=== PATIENT | female | born 1970 | race Caucasian/White ===

== ENCOUNTER 2017-04-18 17:33 | Emergency (ER) | payer MEDICAID, OTHER ==
[2017-04-18 19:00] VITALS: BP 119/95
--- NOTE | 2017-04-18 19:17 | EDM.PDOC ---
ED HPI GENERAL MEDICAL PROBLEM - General Chief Complaint: Respiratory Problem Stated Complaint: cough Time Seen by Provider: 04/18/17 19:12 Source of Information: Reports: Patient History Limitations: Reports: No Limitations - History of Present Illness INITIAL COMMENTS - FREE TEXT/NARRATIVE: Pt with cough x 1 week. Using OTC meds and Albuterol as needed with no improvement. Also with fever/chills, body ache. Does smoke. Known history of COPD. Cough is now nonproductive. Appetite poor. Very fatigued. Onset: Gradual Location: Reports: Chest Quality: Reports: Ache Severity: Moderate Improves with: Reports: None Worsens with: Reports: Breathing Associated Symptoms: Reports: Cough, Headaches, Loss of Appetite, Shortness of Breath right side chest Pain Score (Numeric/FACES): 9 - Related Data Allergies Allergy/AdvReac Type Severity Reaction Status Date / Time No Known Allergies Allergy Verified 04/18/17 19:00 Home Meds: Home Meds traZODone 150 mg PO BEDTIME 11/26/13 [History] Loratadine [Claritin] 10 mg PO DAILY 04/18/17 [History] Past Medical History HEENT History: Reports: Cataract Cardiovascular History: Reports: Blood Clots/VTE/DVT, Heart Murmur Respiratory History: Reports: COPD Genitourinary History: Reports: Renal Calculus [employer] History: Reports: Musculoskeletal History: Reports: Osteoporosis Neurological History: Reports: Migraines Psychiatric History: Reports: Depression Hematologic History: Reports: Blood Transfusion(s) - Infectious Disease History Infectious Disease History: Reports: Chicken Pox - Past Surgical History HEENT Surgical History: Reports: Cataract Surgery, Eye Surgery Respiratory Surgical History: Reports: None Female Surgical History: Reports: Hysterectomy, Kidney stone extraction, Salpingo-Oophorectomy Musculoskeletal Surgical History: Reports: Arthroscopic Knee Social & Family History - Tobacco Use Smoking Status *Q: Current Every Day Smoker Years of Tobacco use: 34 Packs/Tins Daily: 0.5 Used Tobacco, but Quit: No Second Hand Smoke Exposure: Yes - Caffeine Use Caffeine Use: Reports: Coffee - Alcohol Use Days Per Week of Alcohol Use: 1 Number of Drinks Per Day: 2 Total Drinks Per Week: 2 - Recreational Drug Use Recreational Drug Use: No ED ROS GENERAL - Review of Systems Review Of Systems: See Below Constitutional: Reports: Fever, Chills, Malaise, Decreased Appetite HEENT: Reports: No Symptoms Respiratory: Reports: Shortness of Breath, Wheezing, Cough Cardiovascular: Reports: No Symptoms GI/Abdominal: Reports: No Symptoms Musculoskeletal: Reports: No Symptoms Skin: Reports: No Symptoms Neurological: Reports: No Symptoms Psychiatric: Reports: No Symptoms ED EXAM, GENERAL - Physical Exam Exam: See Below Exam Limited By: No Limitations General Appearance: Alert, WD/WN, Mild Distress Ears: Normal External Exam, Normal Canal, Hearing Grossly Normal, Normal TMs Ear Exam: Bilateral Ear: Auricle Normal, Canal Normal, TM normal Nose: Normal Inspection, Normal Mucosa, No Blood Throat/Mouth: Normal Inspection, Normal Lips, Normal Teeth, Normal Gums, Normal Oropharynx, Normal Voice, No Airway Compromise Head: Atraumatic, Normocephalic Neck: Normal Inspection, Supple, Non-Tender, Full Range of Motion Respiratory/Chest: Decreased Breath Sounds Cardiovascular: Normal Peripheral Pulses, Regular Rate, Rhythm, No Edema, No Gallop, No JVD, No Murmur, No Rub Extremities: Normal Inspection, Normal Range of Motion, Non-Tender, Normal Capillary Refill, No Pedal Edema Psychiatric: Normal Affect, Normal Mood Skin Exam: Warm, Dry, Intact, Normal Color, No Rash Course - Vital Signs Last Recorded V/S: Last Vital Signs Temp 98.1 F 04/18/17 18:57 Pulse 62 04/18/17 18:57 Resp 22 H 04/18/17 18:57 BP 119/95 H 04/18/17 18:57 Pulse Ox 92 L 04/18/17 18:57 - Orders/Labs/Meds Orders: Active Orders 24 hr Category Date Time Status RT Aerosol Therapy [RC] ASDIRECTED Care 04/18/17 19:18 Active Chest 2V [CR] Stat Exams 04/18/17 19:18 Taken Labs: Laboratory Tests 04/18/17 Range/Units 19:29 WBC 7.7 (4.5-11.0) K/uL RBC 4.29 (3.30-5.50) M/uL Hgb 13.8 (12.0-15.0) g/dL Hct 40.8 (36.0-48.0) % MCV 95 (80-98) fL MCH 32 H (27-31) pg MCHC 34 (32-36) % Plt Count 251 (150-400) K/uL Neut % (Auto) 65 (36-66) % Lymph % (Auto) 24 (24-44) % Edwards % (Auto) 10 H (2-6) % Eos % (Auto) 1 L (2-4) % Baso % (Auto) 0 (0-1) % Meds: Medications Discontinued Medications Generic Name Dose Route Start Last Admin Trade Name Eagle PRN Reason Stop Dose Admin Albuterol 0.63 mg 04/18/17 19:18 04/18/17 19:35 Proventil Neb Soln NEB 04/18/17 19:19 0.63 mg ONETIME ONE Administration Methylprednisolone Sodium Succinate 125 mg 04/18/17 19:18 04/18/17 19:33 Solu-Medrol IM 04/18/17 19:19 125 mg ONETIME ONE Administration Departure - Departure Time of Disposition: 19:42 Disposition: Home, Self-Care 01 Condition: Good Clinical Impression: COPD exacerbation - Discharge Information Instructions: Chronic Obstructive Pulmonary Disease Exacerbation, [id number] , Smoking Cessation, Tips for Success, [id number] Referrals: Yeyo Rose MD [Primary Care Provider] - Forms: ED Department Discharge Additional Instructions: Chest xray shows COPD changes only. CBC WNL. Encouraged smoking cessation. Solumedrol 125mg IM given. Albuterol neb given. Pt to start Medrol Dosepak as directed tomorrow. To use Albuterol inhaler as needed 2 puffs QID. Encouraged followup with primary care for PFT's to determine if would benefit from maintenance inhaler. - Problem List & Annotations (1) COPD exacerbation SNOMED Code(s): 129684880, 119751013 Code(s): J44.1 - CHRONIC OBSTRUCTIVE PULMONARY DISEASE W (ACUTE) EXACERBATION Status: Acute Priority: Medium Current Visit: Yes - My Orders Last 24 Hours: My Active Orders 04/18/17 19:18 RT Aerosol Therapy [RC] ASDIRECTED Chest 2V [CR] Stat - Assessment/Plan Last 24 Hours: My Active Orders 04/18/17 19:18 RT Aerosol Therapy [RC] ASDIRECTED Chest 2V [CR] Stat
[2017-04-18] MEDS ORDERED: methylPREDNISolone Sodium Succinate 125 MG/2 ML SDV IM ONE (19:18)
[2017-04-18] MEDS ORDERED: Albuterol 0.021% 0.63 MG/3 ML Neb Soln NEB ONE (19:18)
--- NOTE | 2017-04-20 09:07 | CR ---
Chest 2V HISTORY: Cough, fever. COMPARISON: 05/02/2016. FINDINGS: Hyperinflation. The cardiac size and pulmonary vessels are normal. No infiltrates or effusi ons.
== END 2017-04-18 20:09 | disposition home or self-care (01) ==
LOC: JP.ED 17:33
DX: J44.1 Chronic obstructive pulmonary disease with (acute) exacerbation (principal); G43.909 Migraine, unspecified, not intractable, without status migrainosus; F17.210 Nicotine dependence, cigarettes, uncomplicated; Z79.899 Other long term (current) drug therapy; Z87.442 Personal history of urinary calculi; Z98.49 Cataract extraction status, unspecified eye; Z90.710 Acquired absence of both cervix and uterus
CPT/HCPCS: 36415; 71020; 85025; 94640; 96372; 99284; J2930

== ENCOUNTER 2023-10-18 14:54 | Emergency (ER) | payer MEDICAID ==
[2023-10-18] MEDS: HYDROmorphone 0.5 MG/0.5 ML Syringe IVPUSH ONE (15:35)
[2023-10-18] MEDS: Sodium Chloride 0.9% 10 ML Syringe FLUSH PRN (15:35)
[2023-10-18 15:39] LABS: BASOPHILS PERCENT AUTO 0.1 % (0.1-1.3); EOSINOPHILS PERCENT AUTO 0.1 % (0.0-5.4); HEMATOCRIT 39.2 % (34.3-46.0); HEMOGLOBIN 12.9 g/dL (11.2-15.5); IMMATURE GRAN ABSOLUTE AUTO 0.05 K/uL (0.00-0.23); IMMATURE GRAN PERCENT AUTO 0.5 % (0.0-0.7); LYMPHOCYTES ABSOLUTE AUTO 0.35 K/uL (0.8-3.3); LYMPHOCYTES PERCENT AUTO 3.8 % (11.4-47.7); MEAN CORPUSCULAR HEMOGLOBIN 32.2 pg (31.6-35.5); MEAN CORPUSCULAR HGB CONC 32.9 g/dL (31.6-35.5); MEAN CORPUSCULAR VOLUME 97.8 fL (81.4-99.0); MONOCYTES ABSOLUTE AUTO 0.44 K/uL (0.20-0.90); MONOCYTES PERCENT AUTO 4.8 % (3.3-12.6); NEUTROPHILS ABSOLUTE AUTO 8.38 K/uL (1.0-7.6); NEUTROPHILS PERCENT AUTO 90.7 % (40.0-78.1); PLATELET COUNT,PLT 238 K/uL (130-375); RED BLOOD CELL COUNT 4.01 M/uL (3.77-5.24); WHITE BLOOD CELL COUNT,WBC 9.2 K/uL (3.2-11.0)
[2023-10-18 15:40] LABS: BASOPHILS ABSOLUTE AUTO 0.01 K/uL (0.00-0.10); EOSINOPHILS ABSOLUTE AUTO 0.01 K/uL (0.00-0.40)
[2023-10-18 16:02] LABS: A/G RATIO 1.2 (1.2-2.2); ALANINE AMINOTRANSFERASE,ALT 30 U/L (12-78); ALBUMIN 4.2 g/dL (3.4-5.0); ALKALINE PHOSPHATASE 87 U/L (46-116); ANION GAP 11.2 mmol/L (5.0-14.0); ASPARTATE AMNIOTRANSFERASE,AST 34 U/L (15-37); BILIRUBIN TOTAL 0.4 mg/dL (0.2-1.0); BLOOD UREA NITROGEN,BUN 10 mg/dL (7-18); CALCIUM 9.2 mg/dL (8.5-10.1); CARBON DIOXIDE,CO2 31 mmol/L (21-32); CHLORIDE,CL 100 mmol/L (100-108); CREATININE 0.7 mg/dL (0.6-1.0); ESTIMATED GFR 102 mL/min (>60); GLUCOSE RANDOM 99 mg/dL (74-106); POTASSIUM,K 4.3 mmol/L (3.6-5.2); PROTEIN TOTAL,TP 7.8 g/dL (6.4-8.2); SODIUM,NA 142 mmol/L (140-148); TROPONIN I HIGH SENSITIVITY 40.4 pg/mL (<=60.3)
[2023-10-18 16:10] LABS: PROTHROMBIN TIME 10.3 sec (9.2-10.6); PTT,PARTIAL THROMBOPLSTIN TIME 25.9 sec (21.8-27.3)
[2023-10-18] MEDS: Sodium Chloride 0.9% 1,000 ML IV ONE (16:15)
[2023-10-18] MEDS ORDERED: Sodium Chloride 0.9% 10 ML Syringe FLUSH PRN (16:24)
[2023-10-18 16:35] LABS: APPEARANCE,URINE SLIGHTLY CLOUDY (CLEAR); BILIRUBIN,URINE NEGATIVE (NEGATIVE); COLOR,URINE YELLOW (YELLOW); GLUCOSE,URINE NEGATIVE (NEGATIVE); KETONES,URINE NEGATIVE (NEGATIVE); LEUKOCYTE ESTERASE,URINE NEGATIVE (NEGATIVE); NITRITE,URINE NEGATIVE (NEGATIVE); OCCULT BLOOD,URINE MODERATE (NEGATIVE); PROTEIN,URINE 100 mg/dL (NEGATIVE); UROBILINOGEN,URINE 0.2 EU/dL (0.2-1.0)
[2023-10-18 16:40] LABS: AMORPHOUS SEDIMENT,URINE FEW; BACTERIA,URINE FEW; EPITHELIAL CELLS,URINE RARE; MUCUS,URINE FEW; WBC,URINE 0-5 (0-5)
[2023-10-18] MEDS: Sodium Chloride 0.9% 100 ML IV SCH (16:47)
[2023-10-18] MEDS: Iopamidol 755 Mg/ML 100 ML Bottle IV SCH (16:47)
[2023-10-18 16:53] LABS: CORONAVIRUS COVID-19 NAA NEGATIVE (NEGATIVE); INFLUENZA A NAA POSITIVE (NEGATIVE); INFLUENZA B NAA NEGATIVE (NEGATIVE); RESPIRATORY SYNCYTIAL VIR NAA NEGATIVE (NEGATIVE)
[2023-10-18] MEDS: Albuterol/Ipratropium 3.0-0.5 MG/3 ML Neb Soln NEB ONE (17:30)
[2023-10-18 18:32] LABS: BASE EXCESS ARTERIAL -2.3 mm/L; BICARBONATE,ARTERIAL 29.3 mmol/L (22.0-26.0); CARBOXYHEMOGLOBIN 1.4 % (0.0-1.6); METHEMOGLOBIN 1.4 %; O2 SATURATION ARTERIAL 95.5 % (95.0-98.0); OXYHEMOGLOBIN 92.8 %; TOTAL HEMOGLOBIN 12.2 g/dL (12.0-16.0)
[2023-10-18 18:35] LABS: PCO2 ARTERIAL 93.2 mmHg (35.0-42.0)
[2023-10-18] MEDS: Iopamidol 755 Mg/ML 100 ML Bottle IV ONE (19:09)
[2023-10-18] MEDS: Sodium Chloride 0.9% 10 ML Syringe FLUSH ONE (19:09)
[2023-10-18] MEDS: Sodium Chloride 0.9% 100 ML IV ONE (19:09)
[2023-10-18 19:11] LABS: AMPHETAMINES SCREEN, URINE NEGATIVE (NEGATIVE); BARBITURATE SCREEN,URINE NEGATIVE (NEGATIVE); BENZODIAZEPINES SCREEN,URINE NEGATIVE (NEGATIVE); METHADONE SCREEN, URINE NEGATIVE (NEGATIVE); METHAMPHETAMINES SCREEN, URINE NEGATIVE (NEGATIVE); OXYCODONE SCREEN,URINE NEGATIVE (NEGATIVE); PROPOXYPHENE SCREEN,URINE NEGATIVE (NEGATIVE); THC SCREEN,URINE 50 NG/ML NEGATIVE (NEGATIVE)
[2023-10-18] MEDS: LORazepam 2 MG/ML SDV IVPUSH ONE ×2 (19:32→20:40)
[2023-10-18] MEDS: cefTRIAXone 2 GM in Sodium Chloride 0.9% 50 ML IV ONE (20:21)
[2023-10-18] MEDS: Midazolam 1 MG/ML 5 ML SDV IVPUSH ONE (22:21)
[2023-10-18] MEDS: Azithromycin 250 MG Tab PO SCH (22:29)
[2023-10-18] MEDS: Azithromycin 500 MG in Sodium Chloride 0.9% 150 ML IV ONE (22:29)
[2023-10-18 22:49] VITALS: BP 127/63; PULSE 110
[2023-10-19] MEDS ORDERED: Azithromycin 250 MG Tab PO SCH (09:00)
== END 2023-10-18 22:30 | disposition other institution (70) ==
LOC: JP.ED 14:54
DX: J96.01 Acute respiratory failure with hypoxia (principal); J96.02 Acute respiratory failure with hypercapnia; J44.9 Chronic obstructive pulmonary disease, unspecified; Z79.899 Other long term (current) drug therapy; Z90.710 Acquired absence of both cervix and uterus
CPT/HCPCS: 0241U; 36415; 36600; 70450; 70496; 70498; 71045; 71275; 80053; 80305; 80307; 81001; 82803; 82947; 83605; 84145; 84484; 85025; 85379; 85610; 85730; 93005; 93010; 94640; 94660; 96361; 96365; 96375; 96376; 99285; J0456; J0696; J1170; J2060; J2250; J3490; J7030; Q9967; J7620

== ENCOUNTER 2024-12-22 18:20 | Emergency (ER) | payer MEDICARE ==
[2024-12-22] MEDS: HYDROmorphone 1 MG/ML Syringe IM ONE (19:07)
[2024-12-22 20:12] VITALS: BP 108/45; PULSE 56
== END 2024-12-22 20:30 | disposition home or self-care (01) ==
LOC: JP.ED 18:20
DX: S90.32XA Contusion of left foot, initial encounter (principal); Z79.899 Other long term (current) drug therapy; Z90.710 Acquired absence of both cervix and uterus; F17.200 Nicotine dependence, unspecified, uncomplicated; W54.1XXA Struck by dog, initial encounter
CPT/HCPCS: 73630; 96372; 99283; J1171